=== PATIENT | female | born 1980 | race African-American/Black ===

== ENCOUNTER 2019-03-12 11:07 | Emergency (ER) | payer MEDICAID ==
[~2019-03-12] VITALS: Ht 167.6 cm; Wt 64.2 kg
[2019-03-12] MEDS ORDERED: FLUORESCEIN SODIUM 1MG/STRIP BOTHEYE ONE (12:15)
[2019-03-12] MEDS ORDERED: TETRACAINE 0.5% OPHTH DROPS 4ML BOTHEYE ONE (12:15)
[2019-03-12] MEDS ORDERED: KETOROLAC 30MG/ML VIAL IV ONE (13:45)
[2019-03-12 15:13] VITALS: BP 110/50
== END 2019-03-12 15:15 | disposition home or self-care (01) ==
LOC: ER 11:07
DX: S05.01XA Injury of conjunctiva and corneal abrasion without foreign body, right eye, initial encounter (principal); F17.210 Nicotine dependence, cigarettes, uncomplicated; I10 Essential (primary) hypertension; X58.XXXA Exposure to other specified factors, initial encounter; Y93.89 Activity, other specified; Y92.018 Other place in single-family (private) house as the place of occurrence of the external cause
CPT/HCPCS: 81025; 82962; 96374; 99283; J1885

== ENCOUNTER 2019-08-14 08:09 | Emergency (ER) | payer MEDICAID ==
[~2019-08-14] VITALS: Ht 165.1 cm; Wt 65.0 kg
[2019-08-14] MEDS ORDERED: KETOROLAC 60MG/2ML VIAL IM ONE (09:30)
[2019-08-14] MEDS ORDERED: HYDROCODONE/ACETAMINOPHEN 5/325MG TABLET PO ONE (09:30)
[2019-08-14 10:24] VITALS: BP 119/78
== END 2019-08-14 10:25 | disposition home or self-care (01) ==
LOC: ER 08:09
DX: R68.84 Jaw pain (principal); Z72.0 Tobacco use
CPT/HCPCS: 81025; 96372; 99283; J1885

== ENCOUNTER 2024-07-28 22:53 | Emergency (ER) | payer MEDICAID, OTHER ==
[~2024-07-28] VITALS: Ht 167.6 cm; Wt 54.0 kg
[2024-07-28 23:08] VITALS: TEMP 37.1; O2SAT 100
[2024-07-29] MEDS ORDERED: OCUFLX EACHEYE (00:58)
[2024-07-29] MEDS ORDERED: ERYT1OIN6 EACHEYE (00:58)
[2024-07-29] MEDS: CIPROFLOXACIN 0.3% OPHTH SOLN 2.5ML BOTHEYE ONE (01:21)
[2024-07-29 01:25] VITALS: BP 115/59; PULSE 64; RESP 13; O2SAT 98
== END 2024-07-29 01:32 | disposition home or self-care (01) ==
LOC: ER 22:53
DX: H10.33 Unspecified acute conjunctivitis, bilateral (principal); Z79.899 Other long term (current) drug therapy
CPT/HCPCS: 99283